=== PATIENT | female | born 1980 | race Caucasian/White ===

== ENCOUNTER → 2020-11-21 | Day surgery (SDC) | payer OTHER ==
[~2020-11-21] VITALS: Ht 154.9 cm; Wt 54.4 kg
[~2020-11-21] MED LIST: BUPROPION XL150 MG PO; BUSPAR5 MG PO; FAMOTIDINE40 MG PO; NORCO 5-325 TA1 EACH PO; ONDANSETRON ODT8 MG PO; PHENERGAN12.5 M1 PO; PROBIOTIC1 EAC1 PO; PROTONIX 40MG T40 MG PO; WELLBUTRIN SR150 MG PO
[2020-11-21 08:06] LABS: HCG (URINE) SCREEN NEGATIVE (NEGATIVE)
[2020-11-21 08:14] LABS: HCT 40.5 % (37.0-47.0); HGB 13.9 g/dl (12.5-16.0); MCH 31.3 pg (25.0-31.0); MCHC 34.3 g/dL (32.0-36.0); MCV 91.2 fL (78.0-100.0); MPV 10.4 fL (6.0-9.5); RBC 4.44 M/uL (4.20-5.40); RDW 12.9 % (11.5-14.0); WBC 4.1 K/uL (4.0-10.5)
[2020-11-21 08:31] LABS: ALBUMIN 4.2 g/dL (3.4-5.0); BILIRUBIN - TOTAL 0.5 mg/dL (0.2-1.0); BUN/CREAT RATIO (CALC) 8.4 RATIO; CREATININE 0.83 mg/dL (0.51-0.95); GLOBULIN (CALCULATION) 3.8 g/dL; POTASSIUM 3.4 mmol/L (3.5-5.1)
== END | disposition home or self-care (01) ==
LOC: FAS 07:32
PROVIDERS: Surgery
DX: K81.1 Chronic cholecystitis (principal); Z88.8 Allergy status to other drugs, medicaments and biological substances; K21.9 Gastro-esophageal reflux disease without esophagitis; F41.9 Anxiety disorder, unspecified; F32.9 Major depressive disorder, single episode, unspecified
CPT/HCPCS: 36415; 74300; 80053; 84703; C1758; J1885; J2250; J2405; J2704; J2710; J3010; J7120; Q9967